=== PATIENT | female | born 1975 | race Caucasian/White ===

== ENCOUNTER 2020-04-10 12:49 | Inpatient (IN) | payer BC, MEDICARE, OTHER ==
[2020-04-10] MEDS ORDERED: ONDANSETRON 4 MG/2 ML VIAL IVP STA (13:54)
[2020-04-10] MEDS ORDERED: SODIUM CHLORIDE 0.9% 1,000 ML IV STA (13:54)
[2020-04-10] MEDS ORDERED: ACETAMINOPHEN TAB 325 MG TAB PO STA (13:55)
--- NOTE | 2020-04-10 14:01 | ED ---
General Adult HPI <Esdras Owens - Last Filed: 04/10/20 17:10> - General Source: patient, RN notes reviewed, old records reviewed Mode of arrival: ambulatory Limitations: no limitations <Claudio Morgan - Last Filed: 04/10/20 19:06> - General Chief complaint: Abdominal Pain Stated complaint: Abd pain Time Seen by Provider: 04/10/20 13:00 - History of Present Illness Initial comments: 44-year-old female patient past history of irritable bowel syndrome patient's ED with abdominal pain. Patient reports that starting at 9 PM last night she began to have periumbilical abdominal pain which has gradually migrated down to her right lower quadrant. Reports that she has had approximately 4 episodes of na usea and vomiting most recently at 9 AM this morning. Patient denies any chance of being . Denies any other complaints at this time. Systemic: Pt denies fatigue, fever/chills, rash. Pt denies weakness, night sweats, weight loss. Neuro: Pt denies headache, visual disturbances, syncope or pre-syncope. HEENT: Pt denies ocular discharge or irritation, otalgia, rhinorrhea, pharyngitis or notable lymphadenopathy. Cardiopulmonary: Pt denies chest pain, SOB, heart palpitations, dyspnea on e xertion. : Pt denies dysuria, burning w/ urination, frequency/urgency. Denies new onset urinary or bowel incontinence. MSK: Pt denies myalgia, loss of strength or function in extremities. Neuro: Pt denies new onset weakness, paresthesias. (Claudio Morgan) - Related Data Home Medications Medication Instructions Recorded Confirmed Melatonin 3 mg PO HS 04/18/15 11/01/15 Previous Rx's Medication Instructions Recorded Citalopram Hydrobromide [CeleXA] 10 mg PO DAILY@1900 #30 tab 11/05/15 clonazePAM [KlonoPIN] 1 mg PO HS #15 tab 11/05/15 traZODone HCL [Desyrel] 50 mg PO HS #30 tab 11/05/15 Allergies Allergy/AdvReac Type Severity Reaction Status Date / Time No Known Allergies Allergy Verified 04/10/20 12:57 Review of Systems ROS Other: All systems not noted in ROS Statement are negative. <Esdras Owens - Last Filed: 04/10/20 17:10> ROS Other: All systems not noted in ROS Statement are negative. <Claudio Morgan - Last Filed: 04/10/20 19:06> ROS Statement: Those systems with pertinent positive or pertinent negative responses have been documented in the HPI. Past Medical History Past Medical History: No Reported History Additional Past Medical History / Comment(s): IBS, stage 0 CLL History of Any Multi-Drug Resistant Organisms: None Reported Past Surgical History: Cholecystectomy Past Anesthesia/Blood Transfusion Reactions: No Reported Reaction Past Psychological History: Bipolar, Depression Smoking Status: Never smoker Past Alcohol Use History: None Reported Past Drug Use History: None Reported - Past Family History Father Family Medical History: Cancer Additional Family Medical History / Comment(s): Father is age 68 with history of colon cancer. Mother Additional Family Medical History / Comment(s): Mother is alive with history of thyroid problem and hyperlipidemia. Patient has 1 brother with no major medical problems. <Claudio Morgan - Last Filed: 04/10/20 19:06> General Exam Limitations: no limitations <Claudio Morgan - Last Filed: 04/10/20 19:06> - General Exam Comments Initial Comments: Constitutional: NAD, AOX3, Pt has pleasant affect. HEENT: NC/AT, trachea midline, neck supple, no lymphadenopathy. Posterior pharynx non erythematous, without exudates. External ears appear normal, without discharge. Mucous membranes moist. Eyes PERRLA, EOM intact. There is no scleral icterus. No pallor noted. Cardiopulmonary: RRR, no murmurs, rubs or gallops, no JVD noted. Lungs CTAB in anterior and posterior hargrove. No peripheral edema. Abdominal exam: Abdomen soft and non-distended. Abdomen moderately tender to palpation periumbilical right lower quadrant region. No guarding no rigidity no ecchymoses. Bowel sounds active in LLQ. No hepatosplenomegaly.Neuro: CN II-XII grossly intact. No nuchal rigidity. No raccon eyes, no dunne sign, no hemotympanum. No cervical spinal tenderness. MSK: No posterior calf tenderness bilaterally, homans sign negative bilaterally. Posterior tibialis and radial pulse +2 bilaterally. Sensation intact in upper and lower extremities. Full active ROM in upper and lower extremities, 5/5 stregnth. (Claudio Morgan) Course Vital Signs 04/10/20 04/10/20 04/10/20 12:51 15:12 16:45 Temperature 97.9 F Pulse Rate 82 75 64 Pulse Rate [ Pulse Oximetery ] Respiratory 18 18 18 Rate Blood Pressure 116/75 106/63 111/65 Blood Pressure [Right Arm Supine] O2 Sat by Pulse 98 100 98 Oximetry 04/10/20 04/10/20 04/10/20 18:00 18:14 18:35 Temperature 99.2 F 98.5 F Pulse Rate 78 Pulse Rate [ 91 80 Pulse Oximetery ] Respiratory 18 18 18 Rate Blood Pressure 121/78 Blood Pressure 118/72 [Right Arm Supine] O2 Sat by Pulse 98 99 98 Oximetry Medical Decision Making - Lab Data Result diagrams: 04/10/20 13:47 04/10/20 13:47 <Esdras Owens - Last Filed: 04/10/20 17:10> - Lab Data Result diagrams: 04/10/20 13:47 04/10/20 13:47 <Claudio Morgan - Last Filed: 04/10/20 19:06> - Medical Decision Making Patient reevaluated and reexamined by myself, Dr. Owens. I do agree with PA findings. This includes diagnostic interpretation and treatment plan. Patient is resting comfortably in bed. Abdomen is soft however there is moderate tenderness right lower quadrant. Report and results reviewed. Patient updated. Case discussed in detail with Dr. Scherer, who will admit and take patient to the OR. (Esdras Owens) 44-year-old female patient past history of irritable bowel syndrome patient's ED with abdominal pain. Patient reports that starting at 9 PM last night she began to have periumbilical abdominal pain which has gradually migrated down to her right lower quadrant. Reports that she has had approximately 4 episodes of nausea and vomiting most recently at 9 AM this morning. Patient denies any chance of being . Denies any other complaints at this time. Patient will signs are stable, afebrile. Physical exam displayed right lower quadrant periumbilical abdominal tenderness. Laboratory investigations reveal a white cell count of 29.3. CT and L displayed dilated appendix with appendicolith correlate for acute appendicitis. Patient initiated on Zosyn. Patient will be admitted to Dr. Gilliam for acute appendicitis. (Claudio Morgan) - Lab Data Lab Results 04/10/20 04/10/20 04/10/20 Range/Units 13:27 13:27 13:47 WBC 29.3 H (3.8-10.6) k/uL RBC 4.81 (3.80-5.40) m/uL Hgb 14.4 (11.4-16.0) gm/dL Hct 43.5 (34.0-46.0) % MCV 90.5 (80.0-100.0) fL MCH 30.0 (25.0-35.0) pg MCHC 33.2 (31.0-37.0) g/dL RDW 12.5 (11.5-15.5) % Plt Count 177 (150-450) k/uL Neutrophils % 59 % Lymphocytes % 34 % Monocytes % 3 % Eosinophils % 0 % Basophils % 0 % Neutrophils # 17.4 H (1.3-7.7) k/uL Lymphocytes # 10.1 H (1.0-4.8) k/uL Monocytes # 0.8 (0-1.0) k/uL Eosinophils # 0.0 (0-0.7) k/uL Basophils # 0.1 (0-0.2) k/uL Manual Slide Review Performed Anisocytosis (manual) Present Sodium (137-145) mmol/L Potassium (3.5-5.1) mmol/L Chloride (98-107) mmol/L Carbon Dioxide (22-30) mmol/L Anion Gap mmol/L BUN (7-17) mg/dL Creatinine (0.52-1.04) mg/dL Est GFR (CKD-EPI)AfAm (>60 ml/min/1.73 sqM) Est GFR (CKD-EPI)NonAf (>60 ml/min/1.73 sqM) Glucose (74-99) mg/dL Plasma Lactic Acid Solomon (0.7-2.0) mmol/L Calcium (8.4-10.2) mg/dL Total Bilirubin (0.2-1.3) mg/dL AST (14-36) U/L ALT (4-34) U/L Alkaline Phosphatase (38-126) U/L Total Protein (6.3-8.2) g/dL Albumin (3.5-5.0) g/dL Lipase (23-300) U/L Urine Color Yellow Urine Appearance Cloudy H (Clear) Urine pH 6.0 (5.0-8.0) Ur Specific [place] 1.030 (1.001-1.035) Urine Protein Trace H (Negative) Urine Glucose (UA) Negative (Negative) Urine Ketones 2+ H (Negative) Urine Blood Moderate H (Negative) Urine Nitrite Negative (Negative) Urine Bilirubin Negative (Negative) Urine Urobilinogen <2.0 (<2.0) mg/dL Ur Leukocyte Esterase Negative (Negative) Urine RBC 2 (0-5) /hpf Urine WBC 6 H (0-5) /hpf Ur Squamous Epith Cells 5 H (0-4) /hpf Amorphous Sediment Rare H (None) /hpf Urine Bacteria Rare H (None) /hpf Urine Mucus Few H (None) /hpf Urine HCG, Qual Not Detected (Not Detectd) Coronavirus (PCR) (Not Detectd) 04/10/20 04/10/20 04/10/20 Range/Units 13:47 13:47 16:35 WBC (3.8-10.6) k/uL RBC (3.80-5.40) m/uL Hgb (11.4-16.0) gm/dL Hct (34.0-46.0) % MCV (80.0-100.0) fL MCH (25.0-35.0) pg MCHC (31.0-37.0) g/dL RDW (11.5-15.5) % Plt Count (150-450) k/uL Neutrophils % % Lymphocytes % % Monocytes % % Eosinophils % % Basophils % % Neutrophils # (1.3-7.7) k/uL Lymphocytes # (1.0-4.8) k/uL Monocytes # (0-1.0) k/uL Eosinophils # (0-0.7) k/uL Basophils # (0-0.2) k/uL Manual Slide Review Anisocytosis (manual) Sodium 137 (137-145) mmol/L Potassium 3.7 (3.5-5.1) mmol/L Chloride 106 (98-107) mmol/L Carbon Dioxide 21 L (22-30) mmol/L Anion Gap 10 mmol/L BUN 14 (7-17) mg/dL Creatinine 0.79 (0.52-1.04) mg/dL Est GFR (CKD-EPI)AfAm >90 (>60 ml/min/1.73 sqM) Est GFR (CKD-EPI)NonAf >90 (>60 ml/min/1.73 sqM) Glucose 128 H (74-99) mg/dL Plasma Lactic Acid Solomon 1.3 (0.7-2.0) mmol/L Calcium 9.5 (8.4-10.2) mg/dL Total Bilirubin 1.0 (0.2-1.3) mg/dL AST 22 (14-36) U/L ALT 16 (4-34) U/L Alkaline Phosphatase 68 (38-126) U/L Total Protein 7.4 (6.3-8.2) g/dL Albumin 4.5 (3.5-5.0) g/dL Lipase 83 (23-300) U/L Urine Color Urine Appearance (Clear) Urine pH (5.0-8.0) Ur Specific [place] (1.001-1.035) Urine Protein (Negative) Urine Glucose (UA) (Negative) Urine Ketones (Negative) Urine Blood (Negative) Urine Nitrite (Negative) Urine Bilirubin (Negative) Urine Urobilinogen (<2.0) mg/dL Ur Leukocyte Esterase (Negative) Urine RBC (0-5) /hpf Urine WBC (0-5) /hpf Ur Squamous Epith Cells (0-4) /hpf Amorphous Sediment (None) /hpf Urine Bacteria (None) /hpf Urine Mucus (None) /hpf Urine HCG, Qual (Not Detectd) Coronavirus (PCR) Not Detected (Not Detectd) Disposition <Esdras Owens - Last Filed: 04/10/20 17:10> Is patient prescribed a controlled substance at d/c from ED?: No <Claudio Morgan - Last Filed: 04/10/20 19:06> Clinical Impression: Acute appendicitis Disposition: ADMITTED IP TO THIS HOSP Condition: Serious
[2020-04-10 14:12] LABS: Amorphous Sediment,Urine Rare /hpf; Appearance,Urine Cloudy (Clear); Bacteria,Urine Rare /hpf; Bilirubin,Urine Negative (Negative); Blood,Urine Moderate (Negative); Color,Urine Yellow; Glucose,Urine (UA) Negative (Negative); Ketones,Urine 2+ (Negative); Leukocyte Esterase,Urine Negative (Negative); Mucus,Urine Few /hpf; Nitrite,Urine Negative (Negative); Protein,Urine Trace (Negative); RBC,Urine 2 /hpf (0-5); Squamous Epithelial Cell,Urine 5 /hpf (0-4); Urobilinogen,Urine <2.0 mg/dL (<2.0); WBC,Urine 6 /hpf (0-5)
[2020-04-10 14:18] LABS: Basophils # (A) 0.1 k/uL (0-0.2); Basophils % (A) 0 %; Eosinophils % (A) 0 %; HCT 43.5 % (34.0-46.0); HGB 14.4 gm/dL (11.4-16.0); Lymphocytes # (A) 10.1 k/uL (1.0-4.8); Lymphocytes % (A) 34 %; MCHC 33.2 g/dL (31.0-37.0); MCV 90.5 fL (80.0-100.0); Mean Platelet Volume 8.8; Monocytes # (A) 0.8 k/uL (0-1.0); Monocytes % (A) 3 %; Neutrophils # (A) 17.4 k/uL (1.3-7.7); Neutrophils % (A) 59 %; Platelet Count 177 k/uL (150-450); RBC 4.81 m/uL (3.80-5.40); RDW 12.5 % (11.5-15.5); WBC 29.3 k/uL (3.8-10.6)
[2020-04-10 14:22] LABS: ALT 16 U/L (4-34); AST 22 U/L (14-36); African American GFR (CKD) >90 (>60 ml/min/1.73 sqM); Albumin 4.5 g/dL (3.5-5.0); Alkaline Phosphatase 68 U/L (38-126); Anion Gap 10 mmol/L; Blood Urea Nitrogen 14 mg/dL (7-17); Calcium 9.5 mg/dL (8.4-10.2); Carbon Dioxide 21 mmol/L (22-30); Chloride 106 mmol/L (98-107); Glucose 128 mg/dL (74-99); Non-African American GFR(CKD) >90 (>60 ml/min/1.73 sqM); Potassium 3.7 mmol/L (3.5-5.1); Sodium 137 mmol/L (137-145); Total Protein 7.4 g/dL (6.3-8.2)
[2020-04-10 15:05] LABS: Anisocytosis (M) Present
--- NOTE | 2020-04-10 16:07 | CT ---
EXAMINATION TYPE: CT abdomen pelvis w con DATE OF EXAM: 04/10/2020 COMPARISON: HISTORY: Periumbilical pain CT DLP: 1140.2 mGycm Automated exposure control for dose reduction was used. CONTRAST: CT scan of the abdomen pelvis is performed with IV Contrast, patient injected with 100 mL of Isovue 3 00. FINDINGS- LUNG BASES-subsegmental changes involving the lung bases suggestive of atelectasis. LIVER/GB-postcholecystectomy changes noted.. PANCREAS- No gross abnormality is seen. SPLEEN-spleen measures approximately 14 cm correlate for mild splenomegaly.. ADRENALS- No gross abnormality is seen. KIDNEYS/BLADDER- no hydronephrosis nephrolithiasis or renal mass. BOWEL-appendix contains an appendicolith appears to be markedly dilated and there is mild pericolonic inflammatory change. Appendix measures up to 12 mm. There is a small amount of fluid adjacent to the uterus on the right.. LYMPH NODES- No greater than 1cm abdominal or pelvic lymph nodes areappreciated. Shotty periaortic l ymphadenopathy noted. OSSEOUS STRUCTURES- No significant abnormality is seen. OTHER- small fluid attenuation adjacent body on the right is nonspecific and too small to characteri ze. It is seen adjacent to the suspected acute appendicitis. IMPRESSION- 1. Dilated appendix with appendicolith correlate for acute appendicitis. Small amount of nondescript fluid seen adjacent to the right uterine body is nonspecific. Correlate clinically. 2. Mild splenomegaly.
[2020-04-10] MEDS ORDERED: PIPERACILLIN-TAZOBACTAM 3.375 GM in SODIUM CHLORIDE 0.9% 100 ML IVPB STA (16:09)
[2020-04-10] MEDS ORDERED: MORPHINE SULFATE 4 MG/ML SYRINGE IV STA (16:48)
[2020-04-10] MEDS ORDERED: NALOXONE 0.4 MG/ML 1 ML VIAL IV PRN ×2 (17:32→19:26)
[2020-04-10] MEDS ORDERED: MORPHINE SULFATE 4 MG/ML SYRINGE IV PRN (17:32)
[2020-04-10] MEDS ORDERED: IV FLUID CONTINUATION 400 ML IV ONE (18:12)
[2020-04-10] MEDS ORDERED: DEXAMETHASONE SOD PHOSPHATE 10 MG/ML 1 ML VIAL IV ONE (18:12)
[2020-04-10] MEDS ORDERED: SCOPOLAMINE 1.5MG/72HR PATCH TRANSDERM ONE (18:12)
[2020-04-10] MEDS ORDERED: ONDANSETRON 4 MG/2 ML VIAL IVP ONE (18:12)
[2020-04-10] MEDS ORDERED: MIDAZOLAM 2 MG/2 ML VIAL IV ONE (18:13)
[2020-04-10] MEDS ORDERED: METOCLOPRAMIDE 5 MG/ML 2 ML VIAL IVP PRN (18:17)
[2020-04-10] MEDS ORDERED: LIDOCAINE 1% (10MG/ML) FOR IV START INTRADERMA PRN (18:17)
[2020-04-10] MEDS ORDERED: LACTATED RINGERS 1,000 ML IV ONE ×2 (18:34→19:26)
[2020-04-10] MEDS ORDERED: HYDROmorphone 1 MG/ML 1 ML SYRINGE IVP ONE (18:34)
--- NOTE | 2020-04-10 18:51 | P.GSHP ---
History of Present Illness H&P Date: 04/10/20 Chief Complaint: Acute appendicitis This a 44-year-old female who presents emergency room with 24 hour history of abdominal pain. His workup found have acute appendicitis on CAT scan. The patient's septic on admission with a white count of 29,000 Past Medical History Past Medical History: No Reported History Additional Past Medical History / Comment(s): IBS, stage 0 CLL History of Any Multi-Drug Resistant Organisms: None Reported Past Surgical History: Cholecystectomy Past Anesthesia/Blood Transfusion Reactions: No Reported Reaction Past Psychological History: Bipolar, Depression Smoking Status: Never smoker Past Alcohol Use History: None Reported Past Drug Use History: None Reported - Past Family History Father Family Medical History: Cancer Additional Family Medical History / Comment(s): Father is age 68 with history of colon cancer. Mother Additional Family Medical History / Comment(s): Mother is alive with history of thyroid problem and hyperlipidemia. Patient has 1 brother with no major medical problems. Medications and Allergies Home Medications Medication Instructions Recorded Confirmed Type Melatonin 3 mg PO HS 04/18/15 11/01/15 History Citalopram Hydrobromide [CeleXA] 10 mg PO DAILY@1900 #30 tab 11/05/15 Rx clonazePAM [KlonoPIN] 1 mg PO HS #15 tab 11/05/15 Rx traZODone HCL [Desyrel] 50 mg PO HS #30 tab 11/05/15 Rx Allergies Allergy/AdvReac Type Severity Reaction Status Date / Time No Known Allergies Allergy Verified 04/10/20 12:57 Surgical - Exam Vital Signs Temp Pulse Resp BP Pulse Ox 97.9 F 82 18 116/75 98 04/10/20 12:51 04/10/20 12:51 04/10/20 12:51 04/10/20 12:51 04/10/20 12:51 - General well developed, moderate distress - Eyes PERRL - ENT normal pinna - Neck no masses - Respiratory normal expansion - Cardiovascular Rhythm: regular - Abdomen Marked tenderness right lower quadrant Abdomen: soft Results - Labs 04/10/20 13:47 04/10/20 13:47 Abnormal Lab Results - Last 24 Hours (Table) 04/10/20 04/10/20 04/10/20 Range/Units 13:27 13:47 13:47 WBC 29.3 H (3.8-10.6) k/uL Neutrophils # 17.4 H (1.3-7.7) k/uL Lymphocytes # 10.1 H (1.0-4.8) k/uL Carbon Dioxide 21 L (22-30) mmol/L Glucose 128 H (74-99) mg/dL Urine Appearance Cloudy H (Clear) Urine Protein Trace H (Negative) Urine Ketones 2+ H (Negative) Urine Blood Moderate H (Negative) Urine WBC 6 H (0-5) /hpf Ur Squamous Epith Cells 5 H (0-4) /hpf Amorphous Sediment Rare H (None) /hpf Urine Bacteria Rare H (None) /hpf Urine Mucus Few H (None) /hpf Diabetes panel 04/10/20 Range/Units 13:47 Sodium 137 (137-145) mmol/L Potassium 3.7 (3.5-5.1) mmol/L Chloride 106 (98-107) mmol/L Carbon Dioxide 21 L (22-30) mmol/L BUN 14 (7-17) mg/dL Creatinine 0.79 (0.52-1.04) mg/dL Glucose 128 H (74-99) mg/dL Calcium 9.5 (8.4-10.2) mg/dL AST 22 (14-36) U/L ALT 16 (4-34) U/L Alkaline Phosphatase 68 (38-126) U/L Total Protein 7.4 (6.3-8.2) g/dL Albumin 4.5 (3.5-5.0) g/dL Calcium panel 04/10/20 Range/Units 13:47 Calcium 9.5 (8.4-10.2) mg/dL Albumin 4.5 (3.5-5.0) g/dL Pituitary panel 04/10/20 Range/Units 13:47 Sodium 137 (137-145) mmol/L Potassium 3.7 (3.5-5.1) mmol/L Chloride 106 (98-107) mmol/L Carbon Dioxide 21 L (22-30) mmol/L BUN 14 (7-17) mg/dL Creatinine 0.79 (0.52-1.04) mg/dL Glucose 128 H (74-99) mg/dL Calcium 9.5 (8.4-10.2) mg/dL Adrenal panel 04/10/20 Range/Units 13:47 Sodium 137 (137-145) mmol/L Potassium 3.7 (3.5-5.1) mmol/L Chloride 106 (98-107) mmol/L Carbon Dioxide 21 L (22-30) mmol/L BUN 14 (7-17) mg/dL Creatinine 0.79 (0.52-1.04) mg/dL Glucose 128 H (74-99) mg/dL Calcium 9.5 (8.4-10.2) mg/dL Total Bilirubin 1.0 (0.2-1.3) mg/dL AST 22 (14-36) U/L ALT 16 (4-34) U/L Alkaline Phosphatase 68 (38-126) U/L Total Protein 7.4 (6.3-8.2) g/dL Albumin 4.5 (3.5-5.0) g/dL Assessment and Plan Assessment: Acute appendicitis. We'll perform laparoscopic appendectomy.
[2020-04-10] MEDS ORDERED: PROPOFOL 10 MG/ML 20 ML VIAL IV ONE (18:53)
[2020-04-10] MEDS ORDERED: GLYCOPYRROLATE 0.2 MG/ML 2 ML VIAL ONE (18:53)
[2020-04-10] MEDS ORDERED: MIDAZOLAM 2 MG/2 ML VIAL ONE (18:53)
[2020-04-10] MEDS ORDERED: LIDOCAINE 1% INJ 10MG/ML (20 ML MDV) ONE (18:53)
[2020-04-10] MEDS ORDERED: NEOSTIGMINE 1 MG/ML 10 ML VIAL ONE (18:53)
[2020-04-10] MEDS ORDERED: SUCCINYLCHOLINE CHLORIDE 100 MG/5 ML SYR IV ONE (18:53)
[2020-04-10] MEDS ORDERED: fentaNYL (PF) 50 MCG/ML 2 ML AMP ONE (18:53)
[2020-04-10] MEDS ORDERED: ROCURONIUM BROMIDE 10 MG/ML 5 ML VIAL IV ONE (18:53)
[2020-04-10] MEDS ORDERED: BUPIVACAIN-EPI 0.25%-1:200,000 30 ML VIAL SQ ONE (19:05)
[2020-04-10] MEDS ORDERED: ONDANSETRON 4 MG/2 ML VIAL IVP PRN (19:26)
[2020-04-10] MEDS ORDERED: HYDROcodone/APAP 5-325MG 1 EACH TAB PO PRN (19:26)
--- NOTE | 2020-04-10 19:26 | P.OP ---
Date of Procedure: 04/10/20 Preoperative Diagnosis: Acute appendicitis Postoperative Diagnosis: Acute perforated appendicitis Procedure(s) Performed: Laparoscopic appendectomy Anesthesia: ANANDA Surgeon: Chris Gibson Estimated Blood Loss (ml): 5 Pathology: other (Appendix) Condition: stable Disposition: PACU Description of Procedure: HThe patient's placed on the operating table in the supine position. The patient received general anesthesia. The abdomen was prepped and draped in the usual sterile fashion. The skin was anesthetized 1% local Xylocaine at the trocar sites. Using an 11 blade the skin was incised at the umbilicus. The umbilicus was grasped with a Jessup clamp and then a Veress needle was placed into the peritoneal cavity. Position of the Veress needle was confirmed with positive drop test. After adequate insufflation a 5 mm trocar was placed into the peritoneal cavity. The abdomen was further insufflated. And then the laparoscope was placed in the peritoneal cavity. Next a 5 mm trocar was placed in the midline suprapubic position. And then a 10 mm trocar was placed in the midline epigastric position. The patient was rotated with the right side up and in Trendelenburg. The appendix was visualized. The appendix was perforated at the distal tip there was purulent fluid in the abdomen. The appendix appeared to be inflamed. The appendix was grasped and then using the Harmonic scissors the mesoappendix was divided. A PDS Endoloop was then placed around the base of the appendix. And then the appendix was divided using Harmonic scissors. The appendix was placed into an Endo Catch and brought out through the 10 mm trocar site. The abdomen was irrigated. There is no bleeding seen. A JAXON drains placed. Cavity and brought out through the inferior 5 ohmmeter trocar site. The trochars withdrawn. The skin was closed interrupted 3-0 Monocryl suture. Dermabond dressing was applied. Patient was sent to recovery room in stable condition.
[2020-04-10] MEDS: HYDROmorphone 0.5 MG/0.5 ML SYRINGE IVP PRN ×3 (19:30→19:53)
[2020-04-10] MEDS: KETOROLAC 30 MG/ML 1 ML VIAL IVP SCH (19:35)
[2020-04-11] MEDS ORDERED: PIPERACILLIN-TAZOBACTAM 3.375 GM in SODIUM CHLORIDE 0.9% 100 ML IVPB SCH ×2
[2020-04-11] MEDS: KETOROLAC 30 MG/ML 1 ML VIAL IVP SCH ×5 (00:13→23:34)
[2020-04-11] MEDS: PIPERACILLIN-TAZOBACTAM 3.375 GM in SODIUM CHLORIDE 0.9% 100 ML IVPB SCH ×4 (00:15→23:35)
[2020-04-11 06:58] LABS: Basophils % (A) 0 %; Eosinophils # (A) 0.1 k/uL (0-0.7); Eosinophils % (A) 0 %; HCT 40.3 % (34.0-46.0); HGB 13.3 gm/dL (11.4-16.0); Lymphocytes # (A) 4.3 k/uL (1.0-4.8); Lymphocytes % (A) 21 %; MCH 30.4 pg (25.0-35.0); MCHC 33.1 g/dL (31.0-37.0); MCV 91.9 fL (80.0-100.0); Mean Platelet Volume 9.7; Monocytes # (A) 0.4 k/uL (0-1.0); Monocytes % (A) 2 %; Neutrophils # (A) 15.5 k/uL (1.3-7.7); Neutrophils % (A) 76 %; Platelet Count 166 k/uL (150-450); RBC 4.38 m/uL (3.80-5.40); WBC 20.5 k/uL (3.8-10.6)
[2020-04-11 07:09] LABS: ALT 89 U/L (4-34); AST 95 U/L (14-36); African American GFR (CKD) >90 (>60 ml/min/1.73 sqM); Albumin 3.7 g/dL (3.5-5.0); Alkaline Phosphatase 48 U/L (38-126); Anion Gap 11 mmol/L; Blood Urea Nitrogen 12 mg/dL (7-17); Calcium 8.5 mg/dL (8.4-10.2); Carbon Dioxide 19 mmol/L (22-30); Chloride 109 mmol/L (98-107); Glucose 147 mg/dL (74-99); Non-African American GFR(CKD) >90 (>60 ml/min/1.73 sqM); Potassium 4.2 mmol/L (3.5-5.1); Sodium 139 mmol/L (137-145); Total Protein 6.5 g/dL (6.3-8.2)
[2020-04-11] MEDS: ENOXAPARIN 40 MG/0.4 ML SYRINGE SQ SCH (08:35)
--- NOTE | 2020-04-11 08:48 | P.CONS ---
History of Present Illness - History of Present Illness This is a pleasant 44 years old female with past medical history of irritable bowel syndrome and depression. Admitted to surgical service for acute appendicitis, patient underwent Laparoscopic appendectomy and today is postoperative day #1. This morning patient was trying liquid diet, she has pain at surgical site and mid lower abdomen drain . No bowel movement or gas. No nausea vomiting Patient was recently diagnosed with CLL about 2 months ago and she follow up with the oncologist/perinatal coordinator at [facility] and her next appointment is on April Vitals stable. She has leukocytosis 29.3, 20.5 K, rest of CBC and BMP is unremarkable. Liver enzymes slightly elevated. She has CT of the abdomen and pelvis on admission showing appendicitis. Patient was started on Zosyn Review of Systems CONSTITUTIONAL: No fever, no malaise, no fatigue. HEENT: No recent visual problems or hearing problems. Denied any sore throat. CARDIOVASCULAR: No orthopnea, PND, no palpitations, no syncope. PULMONARY: No shortness of breath, no cough, no hemoptysis. GASTROINTESTINAL: No diarrhea, no nausea, no vomiting, no abdominal pain. Normoactive bowel sounds. NEUROLOGICAL: No headaches, no weakness, no numbness. HEMATOLOGICAL: Denies any bleeding or petechiae. GENITOURINARY: Denies any burning micturition, frequency, or urgency. MUSCULOSKELETAL/RHEUMATOLOGICAL: Denies any joint pain, swelling, or any muscle pain. ENDOCRINE: Denies any polyuria or polydipsia. Past Medical History Past Medical History: No Reported History Additional Past Medical History / Comment(s): IBS, stage 0 CLL History of Any Multi-Drug Resistant Organisms: None Reported Past Surgical History: Appendectomy, Cholecystectomy Past Anesthesia/Blood Transfusion Reactions: No Reported Reaction Past Psychological History: Depression Smoking Status: Never smoker Past Alcohol Use History: None Reported Additional Past Alcohol Use History / Comment(s): Patient is a lifelong nonsmoker. She denies any medical marijuana, marijuana or street drug use. She denies any alcohol use. Patient is single. Patient is on disability. Past Drug Use History: Marijuana - Past Family History Father Family Medical History: Cancer Additional Family Medical History / Comment(s): Father is age 68 with history of colon cancer. Mother Additional Family Medical History / Comment(s): Mother is alive with history of thyroid problem and hyperlipidemia. Patient has 1 brother with no major medical problems. Medications and Allergies Home Medications Medication Instructions Recorded Confirmed Type Melatonin 2.5 mg PO HS PRN 04/10/20 04/10/20 History diphenhydrAMINE HCL [Benadryl] 25 - 50 mg PO HS PRN 04/10/20 04/10/20 History Allergies Allergy/AdvReac Type Severity Reaction Status Date / Time No Known Allergies Allergy Verified 04/10/20 21:33 Physical Exam Vitals: Vital Signs Temp Pulse Pulse Resp BP BP Pulse Ox 04/11/20 05:22 98.3 F 96 18 109/68 95 04/10/20 23:47 66 14 100/55 96 04/10/20 22:47 96/54 04/10/20 21:47 73 100/52 95 04/10/20 21:17 59 L 94/55 04/10/20 20:47 75 95/50 90 L 04/10/20 20:32 70 101/58 93 L 04/10/20 20:17 99.0 F 75 18 103/57 96 04/10/20 20:02 91 16 122/59 98 04/10/20 19:45 83 16 124/68 98 04/10/20 19:30 82 16 124/77 98 04/10/20 19:25 99.5 F 111 H 16 125/64 94 L 04/10/20 18:35 80 18 98 04/10/20 18:14 98.5 F 91 18 118/72 99 04/10/20 18:00 99.2 F 78 18 121/78 98 04/10/20 16:45 64 18 111/65 98 04/10/20 15:12 75 18 106/63 100 04/10/20 12:51 97.9 F 82 18 116/75 98 Intake and Output 04/10/20 04/11/20 04/11/20 22:59 06:59 14:59 Intake Total 1350 0 Output Total 10 30 Balance 1340 -30 Intake: IV 1350 Oral 0 0 Output: Drainage 30 Anterior Abdomen 30 Estimated Blood Loss 10 Other: # Voids 0 1 Weight 86.183 kg GENERAL: The patient is alert and oriented x3, not in any acute distress. Well developed, well nourished. HEENT: Pupils are round and equally reacting to light. EOMI. No scleral icterus. No conjunctival pallor. Normocephalic, atraumatic. No pharyngeal erythema. No thyromegaly. CARDIOVASCULAR: S1 and S2 present. No murmurs, rubs, or gallops. PULMONARY: Chest is clear to auscultation, no wheezing or crackles. -ABDOMEN: Soft, nontender, nondistended, normoactive bowel sounds. No palpable organomegaly. Right lower quadrant surgical wound with dressing MUSCULOSKELETAL: No joint swelling or deformity. EXTREMITIES: No cyanosis, clubbing, or pedal edema. NEUROLOGICAL: Gross neurological examination did not reveal any focal deficits. SKIN: No rashes. No petechiae Results CBC & Chem 7: 04/11/20 06:09 04/11/20 06:09 Labs: Abnormal Lab Results - Last 24 Hours (Table) 04/10/20 04/10/20 04/10/20 Range/Units 13:27 13:47 13:47 WBC 29.3 H (3.8-10.6) k/uL Neutrophils # 17.4 H (1.3-7.7) k/uL Lymphocytes # 10.1 H (1.0-4.8) k/uL Chloride (98-107) mmol/L Carbon Dioxide 21 L (22-30) mmol/L Glucose 128 H (74-99) mg/dL AST (14-36) U/L ALT (4-34) U/L Urine Appearance Cloudy H (Clear) Urine Protein Trace H (Negative) Urine Ketones 2+ H (Negative) Urine Blood Moderate H (Negative) Urine WBC 6 H (0-5) /hpf Ur Squamous Epith Cells 5 H (0-4) /hpf Amorphous Sediment Rare H (None) /hpf Urine Bacteria Rare H (None) /hpf Urine Mucus Few H (None) /hpf 04/11/20 04/11/20 Range/Units 06:09 06:09 WBC 20.5 H (3.8-10.6) k/uL Neutrophils # 15.5 H (1.3-7.7) k/uL Lymphocytes # (1.0-4.8) k/uL Chloride 109 H (98-107) mmol/L Carbon Dioxide 19 L (22-30) mmol/L Glucose 147 H (74-99) mg/dL AST 95 H (14-36) U/L ALT 89 H (4-34) U/L Urine Appearance (Clear) Urine Protein (Negative) Urine Ketones (Negative) Urine Blood (Negative) Urine WBC (0-5) /hpf Ur Squamous Epith Cells (0-4) /hpf Amorphous Sediment (None) /hpf Urine Bacteria (None) /hpf Urine Mucus (None) /hpf Assessment and Plan Assessment: acute appendicitis status post laparoscopic appendectomy Mildly elevated liver enzymes secondary to above CLL, stage 0 History of irritable bowel syndrome Plan: This is a pleasant 44 years old female who presents with acute appendicitis status post laparoscopic appendectomy by surgery cream. Pain management per surgical team. Continue with antibiotic. Follow-up liver enzymes. Labs and medication were reviewed.. Continue same treatment. Continue with symptomatic treatment. Resume home medication. Monitor lytes and vitals. DVT and GI prophylaxis. Further recommendations of the clinical course of the patient DVT prophylaxis: Subcutaneous Lovenox GI Prophylaxis: Pepcid
[2020-04-11] MEDS: FAMOTIDINE 20 MG/2 ML VIAL IV SCH ×2 (10:51→20:57)
--- NOTE | 2020-04-11 11:29 | P.PN ---
Subjective Progress Note Date: 04/11/20 CHIEF COMPLAINT: Abdominal pain HISTORY OF PRESENT ILLNESS: Patient is status post laparoscopic appendectomy secondary to acute perforated appendicitis. Postoperative day #1. Patient examined at the bedside with Dr. Gibson. Patient states her pain is tolerable at this time. Tolerating clear liquid diet. Denies nausea or vomiting. WBC 20.5. PHYSICAL EXAM: VITAL SIGNS: Reviewed. GENERAL: Well-developed in no acute distress. HEENT: No sclera icterus. Extraocular movements grossly intact. Moist buccal mucosa. Head is atraumatic, normocephalic. ABDOMEN: Soft. Nondistended. Surgical sites clean dry and intact. JAXON drain with serosanguineous drainage. NEUROLOGIC: Alert and oriented. Cranial nerves II through XII grossly intact. ASSESSMENT: 1. Acute perforated appendicitis PLAN: -Advance diet to full liquids. If patient tolerates May advance to regular diet -Continue IV antibiotics. Monitor WBC -Pain control -Monitor JAXON drain output -Activity as tolerated -Incentive spirometer Nurse practitioner note has been reviewed by physician. Signing provider agrees with the documented findings, assessment, and plan of care. Objective - Vital Signs Vital signs: Vital Signs Temp 98.3 F 04/11/20 05:22 Pulse 96 04/11/20 05:22 Resp 18 04/11/20 05:22 BP 109/68 04/11/20 05:22 Pulse Ox 95 04/11/20 05:22 Intake & Output 04/10/20 04/11/20 04/11/20 18:59 06:59 18:59 Intake Total 900 450 Output Total 40 Balance 900 410 Weight 86.183 kg 86.183 kg Intake: IV 900 450 Oral 0 Output: Drainage 30 Anterior Abdomen 30 Estimated Blood Loss 10 Other: # Voids 1 - Labs CBC & Chem 7: 04/11/20 06:09 04/11/20 06:09 Labs: Abnormal Lab Results - Last 24 Hours (Table) 04/10/20 04/10/20 04/10/20 Range/Units 13:27 13:47 13:47 WBC 29.3 H (3.8-10.6) k/uL Neutrophils # 17.4 H (1.3-7.7) k/uL Lymphocytes # 10.1 H (1.0-4.8) k/uL Chloride (98-107) mmol/L Carbon Dioxide 21 L (22-30) mmol/L Glucose 128 H (74-99) mg/dL AST (14-36) U/L ALT (4-34) U/L Urine Appearance Cloudy H (Clear) Urine Protein Trace H (Negative) Urine Ketones 2+ H (Negative) Urine Blood Moderate H (Negative) Urine WBC 6 H (0-5) /hpf Ur Squamous Epith Cells 5 H (0-4) /hpf Amorphous Sediment Rare H (None) /hpf Urine Bacteria Rare H (None) /hpf Urine Mucus Few H (None) /hpf 04/11/20 04/11/20 Range/Units 06:09 06:09 WBC 20.5 H (3.8-10.6) k/uL Neutrophils # 15.5 H (1.3-7.7) k/uL Lymphocytes # (1.0-4.8) k/uL Chloride 109 H (98-107) mmol/L Carbon Dioxide 19 L (22-30) mmol/L Glucose 147 H (74-99) mg/dL AST 95 H (14-36) U/L ALT 89 H (4-34) U/L Urine Appearance (Clear) Urine Protein (Negative) Urine Ketones (Negative) Urine Blood (Negative) Urine WBC (0-5) /hpf Ur Squamous Epith Cells (0-4) /hpf Amorphous Sediment (None) /hpf Urine Bacteria (None) /hpf Urine Mucus (None) /hpf
[2020-04-11] MEDS: HYDROmorphone 0.5 MG/0.5 ML SYRINGE IVP PRN ×3 (15:51→23:49)
[2020-04-11] MEDS: MELATONIN 3 MG TABLET PO SCH (20:57)
--- NOTE | 2020-04-12 00:42 | P.CONS ---
History of Present Illness - Reason for Consult Consult date: 04/11/20 perforated appendicitis Requesting physician: Chris Gibson - Chief Complaint abdominal pain and vomiting x 1 day - History of Present Illness Patient is a 44-year-old female presenting to the ER at [facility] yesterday afternoon with chief complaints of abdominal pain patient's pain started the night before and has been mostly in the periumbilical area patient noticed to have a significant vomiting afterwards and patient described the pain however abdominal area to be more of a sharp to colicky and with intensity of 10 out of 10 subsequently returned the pain to the right lower quadrant area the patient did have a telemetry health visit with her primary care physician who advised the patient to go to the ER for further evaluation patient present to the hospital on arrival to the ER patient has been afebrile she did have white count of 29,000 patient did have a CT of abdominal pelvis completed with evidence of for dilated appendix and concern for acute appendicitis patient was taken to the OR last night and this patient noticed to have acute perforated appendicitis there is exposed laparoscopic appendectomy patient was started on Zosyn admitted to hospital infectious was consulted for further management of her antibiotic therapy. Review of Systems Positive point has been mentioned in HPI rest of the systems are negative Past Medical History Past Medical History: No Reported History Additional Past Medical History / Comment(s): IBS, stage 0 CLL History of Any Multi-Drug Resistant Organisms: None Reported Past Surgical History: Appendectomy, Cholecystectomy Past Anesthesia/Blood Transfusion Reactions: No Reported Reaction Past Psychological History: Depression Smoking Status: Never smoker Past Alcohol Use History: None Reported Additional Past Alcohol Use History / Comment(s): Patient is a lifelong nonsmoker. She denies any medical marijuana, marijuana or street drug use. She denies any alcohol use. Patient is single. Patient is on disability. Past Drug Use History: Marijuana - Past Family History Father Family Medical History: Cancer Additional Family Medical History / Comment(s): Father is age 68 with history of colon cancer. Mother Additional Family Medical History / Comment(s): Mother is alive with history of thyroid problem and hyperlipidemia. Patient has 1 brother with no major medical problems. Medications and Allergies Home Medications Medication Instructions Recorded Confirmed Type Melatonin 2.5 mg PO HS PRN 04/10/20 04/10/20 History diphenhydrAMINE HCL [Benadryl] 25 - 50 mg PO HS PRN 04/10/20 04/10/20 History Allergies Allergy/AdvReac Type Severity Reaction Status Date / Time No Known Allergies Allergy Verified 04/10/20 21:33 Physical Exam Vitals: Vital Signs Temp Pulse Pulse Resp BP BP Pulse Ox 04/11/20 11:40 98.6 F 65 18 92/57 96 04/11/20 05:22 98.3 F 96 18 109/68 95 04/10/20 23:47 66 14 100/55 96 04/10/20 22:47 96/54 04/10/20 21:47 73 100/52 95 04/10/20 21:17 59 L 94/55 04/10/20 20:47 75 95/50 90 L 04/10/20 20:32 70 101/58 93 L 04/10/20 20:17 99.0 F 75 18 103/57 96 04/10/20 20:02 91 16 122/59 98 04/10/20 19:45 83 16 124/68 98 04/10/20 19:30 82 16 124/77 98 04/10/20 19:25 99.5 F 111 H 16 125/64 94 L 04/10/20 18:35 80 18 98 04/10/20 18:14 98.5 F 91 18 118/72 99 04/10/20 18:00 99.2 F 78 18 121/78 98 04/10/20 16:45 64 18 111/65 98 04/10/20 15:12 75 18 106/63 100 Intake and Output 04/10/20 04/11/20 04/11/20 22:59 06:59 14:59 Intake Total 1350 0 300 Output Total 10 30 30 Balance 1340 -30 270 Intake: IV 1350 200 0.9 200 Intake, IV Titration 100 Amount Piperacillin-Tazobactam 3 100 .375 gm In Sodium Chloride 0.9% 100 ml @ 25 mls/hr IVPB Q8HR [facility] Rx# :[id number] Oral 0 0 Output: Drainage 30 30 Anterior Abdomen 30 30 Estimated Blood Loss 10 Other: # Voids 0 1 2 Weight 86.183 kg GENERAL DESCRIPTION: Middle-aged female lying in bed, no distress. No tachypnea or accessory muscle of respiration use. HEENT: Shows Pallor , no scleral icterus. Oral mucous membrane is dry. NECK: Trachea central, no thyromegaly. LUNGS: Unlabored breathing. Clear to auscultation anteriorly. No wheeze or crackle. HEART: S1, S2, regular rate and rhythm. ABDOMEN: Soft, mild right lower quadrant tenderness , guarding or rigidity EXTREMITIES: No edema of feet. SKIN: No rash, no masses palpable. NEUROLOGICAL: The patient is awake, alert, oriented x3, mood and affect normal. Results CBC & Chem 7: 04/11/20 06:09 04/11/20 06:09 Labs: Abnormal Lab Results - Last 24 Hours (Table) 04/10/20 04/11/20 04/11/20 Range/Units 13:47 06:09 06:09 WBC 29.3 H 20.5 H (3.8-10.6) k/uL Neutrophils # 17.4 H 15.5 H (1.3-7.7) k/uL Lymphocytes # 10.1 H (1.0-4.8) k/uL Chloride 109 H (98-107) mmol/L Carbon Dioxide 19 L (22-30) mmol/L Glucose 147 H (74-99) mg/dL AST 95 H (14-36) U/L ALT 89 H (4-34) U/L Assessment and Plan Assessment: -patient presented to hospital with abdominal pain of 1 day duration in this patient who was noticed to have significant [place] [id number] suggestive of acute appendicitis with some fluid around and noticed to have perforated appendicitis status post laparoscopic appendectomy will need to cover for enteric gram-negative with a likely pathogen both aerobes and anaerobes (1) Perforated appendix Current Visit: Yes Status: Acute Code(s): K35.32 - ACUTE APPENDICITIS WITH PERF AND LOC PERITONITIS, W/O ABSCS SNOMED Code(s): 92575955 (2) Peritonitis Current Visit: Yes Status: Acute Code(s): K65.9 - PERITONITIS, UNSPECIFIED SNOMED Code(s): 80450302 Plan: 1-Zosyn 3.375 g every 8 hours to continue 2-depending on her clinical course will determine her discharge antibiotics either oral or IV We will follow on clinical condition and cultures to further adjust medication if needed Thank you for this consultation we will follow the patient along with you Time with Patient: Greater than 30
[2020-04-12] MEDS: KETOROLAC 30 MG/ML 1 ML VIAL IVP SCH ×3 (05:58→18:02)
[2020-04-12 06:56] LABS: Basophils % (A) 0 %; Eosinophils # (A) 0.1 k/uL (0-0.7); Eosinophils % (A) 1 %; HCT 34.8 % (34.0-46.0); HGB 11.1 gm/dL (11.4-16.0); Lymphocytes # (A) 2.3 k/uL (1.0-4.8); Lymphocytes % (A) 30 %; MCH 29.8 pg (25.0-35.0); MCHC 31.9 g/dL (31.0-37.0); MCV 93.5 fL (80.0-100.0); Mean Platelet Volume 9.3; Monocytes # (A) 0.3 k/uL (0-1.0); Monocytes % (A) 3 %; Neutrophils % (A) 64 %; RBC 3.72 m/uL (3.80-5.40); RDW 12.6 % (11.5-15.5); WBC 7.8 k/uL (3.8-10.6)
[2020-04-12 08:02] LABS: Platelet Count 87 k/uL (150-450)
[2020-04-12] MEDS: PIPERACILLIN-TAZOBACTAM 3.375 GM in SODIUM CHLORIDE 0.9% 100 ML IVPB SCH ×2 (10:50→18:14)
[2020-04-12] MEDS: ENOXAPARIN 40 MG/0.4 ML SYRINGE SQ SCH (10:51)
[2020-04-12] MEDS: FAMOTIDINE 20 MG/2 ML VIAL IV SCH ×2 (10:51→20:21)
--- NOTE | 2020-04-12 13:48 | P.PN ---
Subjective This is a pleasant 44 years old female with past medical history of irritable bowel syndrome and depression. Admitted to surgical service for acute appendicitis, patient underwent Laparoscopic appendectomy and today is postoperative day #1. This morning patient was trying liquid diet, she has pain at surgical site and mid lower abdomen drain . No bowel movement or gas. 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 She has leukocytosis 29.3, 20.5 K, rest of CBC and BMP is unremarkable. Liver enzymes slightly elevated. She has CT of the abdomen and pelvis on admission showing appendicitis. Patient was started on Zosyn 04/12/2020 patient is status post laparoscopic appendectomy appendectomy and today's postop day 2, she still complaining of from pain at the surgical site, no nausea vomiting, she was able to eat elevated. She is passing no bowel movement. She is also complaining of from coughing which hurts her surgery site, Robitussin will be added, also add incentive spirometry Patient was then of from blurred vision for 2 years gradually worse however after the procedure it could more worse, on examination patient has no diplopia no significant blurriness however she will, or blurry went she started treatment, with counts check hemoglobin A1c. vitals his stable, WBC came back to normal at 7.8K, and patient continue on Zosyn Review of Systems CONSTITUTIONAL: No fever, no malaise, no fatigue. HEENT: No recent visual problems or hearing problems. Denied any sore throat. CARDIOVASCULAR: No orthopnea, PND, no palpitations, no syncope. PULMONARY: No shortness of breath, no cough, no hemoptysis. GASTROINTESTINAL: No diarrhea, no nausea, no vomiting, no abdominal pain. Normoactive bowel sounds. NEUROLOGICAL: No headaches, no weakness, no numbness. HEMATOLOGICAL: Denies any bleeding or petechiae. GENITOURINARY: Denies any burning micturition, frequency, or urgency. MUSCULOSKELETAL/RHEUMATOLOGICAL: Denies any joint pain, swelling, or any muscle pain. ENDOCRINE: Denies any polyuria or polydipsia. Active Medications Generic Name Dose Route Start Last Admin Trade Name Freq PRN Reason Stop Dose Admin Hydrocodone Bitart/Acetaminophen 2 each 04/10/20 19:26 [place] 5-325 PO Q6HR PRN Moderate to Severe Pain Enoxaparin Sodium 40 mg 04/11/20 09:00 04/12/20 10:51 Lovenox SQ 40 mg DAILY DRAKE Administration Famotidine 20 mg 04/11/20 09:00 04/12/20 10:51 Pepcid IV 20 mg Q12HR DRAKE Administration Guaifenesin/Dextromethorphan 10 ml 04/12/20 14:00 Robitussin Dm PO Q6H DRAKE Hydromorphone HCl 0.5 mg 04/10/20 19:26 04/11/20 23:49 Dilaudid IVP 0.5 mg Q3HR PRN Administration Moderate to Severe Pain Piperacillin Sod/Tazobactam 100 mls @ 25 mls/hr 04/11/20 00:00 04/12/20 10:50 Sod 3.375 gm/ Sodium Chloride IVPB 25 mls/hr Q8HR DRAKE Administration Ketorolac Tromethamine 30 mg 04/10/20 18:30 04/12/20 12:58 Toradol IVP 04/12/20 18:31 30 mg Q6HR DRAKE Administration Lidocaine HCl 0.1 ml 04/10/20 18:17 .Xylocaine 1% Inj (10mg/Ml) For Iv Start INTRADERMA PER PROTOCOL PRN IV Start Melatonin 3 mg 04/11/20 21:00 04/11/20 20:57 Melatonin PO 3 mg HS DRAKE Administration Morphine Sulfate 4 mg 04/10/20 17:32 Morphine Sulfate (Inj) IV Q4HR PRN Severe Pain Naloxone HCl 0.2 mg 04/10/20 19:26 Narcan IV Q2M PRN Opioid Reversal Ondansetron HCl 4 mg 04/10/20 19:26 04/12/20 10:57 Zofran IVP 4 mg Q8HR PRN Administration Nausea And Vomiting Objective - Vital Signs Vital signs: Vital Signs Temp 98.7 F 04/12/20 13:04 Pulse 68 04/12/20 13:04 Resp 16 04/12/20 13:04 BP 131/64 04/12/20 13:04 Pulse Ox 98 04/12/20 13:04 Intake & Output 04/11/20 04/12/20 04/12/20 18:59 06:59 18:59 Intake Total 300 700 240 Output Total 30 Balance 270 700 240 Intake: IV 200 0.9 200 Intake, IV Titration 100 Amount Piperacillin-Tazobactam 3 100 .375 gm In Sodium Chloride 0.9% 100 ml @ 25 mls/hr IVPB Q8HR [facility] Rx# :[id number] Oral 700 240 Output: Drainage 30 Anterior Abdomen 30 Other: # Voids 2 2 3 - Exam GENERAL: The patient is alert and oriented x3, not in any acute distress. Well developed, well nourished. HEENT: Pupils are round and equally reacting to light. EOMI. No scleral icterus. No conjunctival pallor. Normocephalic, atraumatic. No pharyngeal erythema. No thyromegaly. CARDIOVASCULAR: S1 and S2 present. No murmurs, rubs, or gallops. PULMONARY: Chest is clear to auscultation, no wheezing or crackles. -ABDOMEN: Soft, nontender, nondistended, normoactive bowel sounds. No palpable organomegaly. Right lower quadrant surgical wound with dressing MUSCULOSKELETAL: No joint swelling or deformity. EXTREMITIES: No cyanosis, clubbing, or pedal edema. NEUROLOGICAL: Gross neurological examination did not reveal any focal deficits. SKIN: No rashes. No petechiae - Labs CBC & Chem 7: 04/12/20 05:39 04/11/20 06:09 Labs: Abnormal Lab Results - Last 24 Hours (Table) 04/12/20 Range/Units 05:39 RBC 3.72 L (3.80-5.40) m/uL Hgb 11.1 L (11.4-16.0) gm/dL Plt Count 87 L (150-450) k/uL Microbiology - Last 24 Hours (Table) 04/10/20 16:27 Blood Culture - Preliminary Blood No Growth after 24 hours Assessment and Plan Assessment: acute appendicitis status post laparoscopic appendectomy Mildly elevated liver enzymes secondary to above blurred vision, chronic, mostly patient will need eyeglasses. Hemoglobin A1c CLL, stage 0 History of irritable bowel syndrome Plan: This is a pleasant 44 years old female who presents with acute appendicitis status post laparoscopic appendectomy by surgery cream. Pain management per surgical team. Continue with antibiotic. Follow-up liver enzymes.check hemoglobin A1c, add incentive spirometry and repetition Labs and medication were reviewed.. Continue same treatment. Continue with symptomatic treatment. Resume home medication. Monitor lytes and vitals. DVT and GI prophylaxis. Further recommendations of the clinical course of the patient DVT prophylaxis: Subcutaneous Lovenox GI Prophylaxis: Pepcid
--- NOTE | 2020-04-12 15:19 | PN ---
PROGRESS NOTE DATE OF SERVICE: 04/12/2020 REASON FOR FOLLOWUP: Acute perforated appendicitis. INTERVAL HISTORY: The patient is currently afebrile. Patient is breathing comfortably. She does have some pain especially with movement of her trunk, though no worsening and she has been taking less of her pain medication. No chest pain or shortness of breath or cough. She has been started on regular diet as of this morning. PHYSICAL EXAMINATION: Blood pressure 131/64 with a pulse of 68, temp 98.7. She is 98% on room air. General description is a middle-aged female up in the bed in no distress. Respiratory system: Unlabored breathing. Clear to auscultation anteriorly. Heart S1, S2. Regular rate and rhythm. ABDOMEN: Soft, no tenderness. JAXON drain with minimal secretions. LABS: Hemoglobin 11.1, white count 7.8, creatinine 0.78. Blood culture negative. DIAGNOSTIC IMPRESSION AND PLAN: Patient with acute perforated appendicitis status post laparoscopic appendectomy. White count has normalized. Keep the patient on IV Zosyn for another 24 hours. Hopefully to finish the oral antibiotic. Plan of care discussed with surgical team. Continue supportive care. MMODL / IJN: [id number] /
[2020-04-12] MEDS: guaiFENesin-DM 100-10MG/5ML 10 ML CUP PO SCH ×2 (15:24→20:36)
--- NOTE | 2020-04-12 15:44 | P.PN ---
Subjective Progress Note Date: 04/12/20 CHIEF COMPLAINT: Abdominal pain HISTORY OF PRESENT ILLNESS: Patient is status post laparoscopic appendectomy secondary to acute perforated appendicitis. Postoperative day #2. Patient examined at the bedside with Dr. Gibson. Patient states her pain is tolerable at this time, but does report some increased pain earlier today. Tolerating diet. Denies nausea or vomiting. WBC 7.8 PHYSICAL EXAM: VITAL SIGNS: Reviewed. GENERAL: Well-developed in no acute distress. HEENT: No sclera icterus. Extraocular movements grossly intact. Moist buccal mucosa. Head is atraumatic, normocephalic. ABDOMEN: Soft. Nondistended. Surgical sites clean dry and intact. JAXON drain with serosanguineous drainage. NEUROLOGIC: Alert and oriented. Cranial nerves II through XII grossly intact. ASSESSMENT: 1. Acute perforated appendicitis PLAN: -Continue regular diet -Continue IV antibiotics. Monitor WBC -Pain control -Monitor JAXON drain output -Activity as tolerated -Incentive spirometer -Anticipate discharge home tomorrow if patient remains stable Nurse practitioner note has been reviewed by physician. Signing provider agrees with the documented findings, assessment, and plan of care. Objective - Vital Signs Vital signs: Vital Signs Temp 98.7 F 04/12/20 13:04 Pulse 68 04/12/20 13:04 Resp 16 04/12/20 13:04 BP 131/64 04/12/20 13:04 Pulse Ox 98 04/12/20 13:04 Intake & Output 04/11/20 04/12/20 04/12/20 18:59 06:59 18:59 Intake Total 300 700 240 Output Total 30 10 Balance 270 700 230 Intake: IV 200 0.9 200 Intake, IV Titration 100 Amount Piperacillin-Tazobactam 3 100 .375 gm In Sodium Chloride 0.9% 100 ml @ 25 mls/hr IVPB Q8HR [facility] Rx# :[id number] Oral 700 240 Output: Drainage 30 10 Anterior Abdomen 30 10 Other: # Voids 2 2 3 - Labs CBC & Chem 7: 04/12/20 05:39 04/11/20 06:09 Labs: Abnormal Lab Results - Last 24 Hours (Table) 04/12/20 Range/Units 05:39 RBC 3.72 L (3.80-5.40) m/uL Hgb 11.1 L (11.4-16.0) gm/dL Plt Count 87 L (150-450) k/uL Microbiology - Last 24 Hours (Table) 04/10/20 16:27 Blood Culture - Preliminary Blood No Growth after 24 hours
[2020-04-12] MEDS: MELATONIN 3 MG TABLET PO SCH (21:01)
[2020-04-12] MEDS: HYDROmorphone 0.5 MG/0.5 ML SYRINGE IVP PRN (21:02)
[2020-04-13] MEDS: guaiFENesin-DM 100-10MG/5ML 10 ML CUP PO SCH ×2 (01:06→08:26)
[2020-04-13] MEDS: PIPERACILLIN-TAZOBACTAM 3.375 GM in SODIUM CHLORIDE 0.9% 100 ML IVPB SCH ×2 (01:06→08:25)
[2020-04-13] MEDS: HYDROmorphone 0.5 MG/0.5 ML SYRINGE IVP PRN (01:10)
[2020-04-13 06:43] LABS: Basophils % (A) 0 %; Eosinophils # (A) 0.1 k/uL (0-0.7); Eosinophils % (A) 2 %; HCT 31.9 % (34.0-46.0); HGB 10.3 gm/dL (11.4-16.0); Lymphocytes # (A) 2.1 k/uL (1.0-4.8); Lymphocytes % (A) 36 %; MCH 29.7 pg (25.0-35.0); MCHC 32.1 g/dL (31.0-37.0); MCV 92.6 fL (80.0-100.0); Mean Platelet Volume 9.9; Monocytes # (A) 0.2 k/uL (0-1.0); Monocytes % (A) 4 %; Neutrophils # (A) 3.2 k/uL (1.3-7.7); Neutrophils % (A) 56 %; RBC 3.45 m/uL (3.80-5.40); RDW 12.5 % (11.5-15.5); WBC 5.7 k/uL (3.8-10.6)
[2020-04-13 06:50] LABS: Platelet Count 85 k/uL (150-450)
[2020-04-13] MEDS: FAMOTIDINE 20 MG/2 ML VIAL IV SCH (08:26)
[2020-04-13] MEDS: ENOXAPARIN 40 MG/0.4 ML SYRINGE SQ SCH (08:26)
[2020-04-13 08:43] VITALS: BP 95/61; PULSE 69; RESP 20
[2020-04-13] MEDS ORDERED: IBUPROFEN 600 MG TAB PO SCH (10:30)
[2020-04-13 10:33] VITALS: TEMP 99.2
[2020-04-13] MEDS ORDERED: guaiFENesin-DM 100-10MG/5ML 10 ML CUP PO PRN (10:44)
--- NOTE | 2020-04-13 10:44 | P.PN ---
Subjective This is a pleasant 44 years old female with past medical history of irritable bowel syndrome and depression. Admitted to surgical service for acute appendicitis, patient underwent Laparoscopic appendectomy and today is postoperative day #1. This morning patient was trying liquid diet, she has pain at surgical site and mid lower abdomen drain . No bowel movement or gas. 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 She has leukocytosis 29.3, 20.5 K, rest of CBC and BMP is unremarkable. Liver enzymes slightly elevated. She has CT of the abdomen and pelvis on admission showing appendicitis. Patient was started on Zosyn 04/12/2020 patient is status post laparoscopic appendectomy appendectomy and today's postop day 2, she still complaining of from pain at the surgical site, no nausea vomiting, she was able to eat elevated. She is passing no bowel movement. She is also complaining of from coughing which hurts her surgery site, Robitussin will be added, also add incentive spirometry Patient was then of from blurred vision for 2 years gradually worse however after the procedure it could more worse, on examination patient has no diplopia no significant blurriness however she will, or blurry went she started treatment, with counts check hemoglobin A1c. vitals his stable, WBC came back to normal at 7.8K, and patient continue on Zosyn 04/13/2020 Patient was sitting on the side of face, no dizziness, no coughing, no chest pain or dyspnea. Her abdominal pain at the surgical site looks better as per patient. She had low-grade temperature of 99.7 and early this morning, systolic blood pressure running in the 90s however patient is asymptomatic patient currently has normal saline running at 50 mL per hour at bedside, increased to 75 mm per hour. She is encouraged to use incentive spirometry. She does not have bowel movement only gas She remains on Zosyn Objective - Vital Signs Vital signs: Vital Signs Temp 99.2 F 04/13/20 10:32 Pulse 69 04/13/20 08:41 Resp 20 04/13/20 08:41 BP 95/61 04/13/20 08:41 Pulse Ox 96 04/13/20 08:41 Intake & Output 04/12/20 04/13/20 04/13/20 18:59 06:59 18:59 Intake Total 240 Output Total 10 20 Balance 230 -20 Intake: Oral 240 Output: Drainage 10 20 Anterior Abdomen 10 20 Other: # Voids 3 1 - Exam GENERAL: The patient is alert and oriented x3, not in any acute distress. Well developed, well nourished. HEENT: Pupils are round and equally reacting to light. EOMI. No scleral icterus. No conjunctival pallor. Normocephalic, atraumatic. No pharyngeal erythema. No thyromegaly. CARDIOVASCULAR: S1 and S2 present. No murmurs, rubs, or gallops. PULMONARY: Chest is clear to auscultation, no wheezing or crackles. -ABDOMEN: Soft, nontender, nondistended, normoactive bowel sounds. No palpable organomegaly. Right lower quadrant surgical wound with dressing MUSCULOSKELETAL: No joint swelling or deformity. EXTREMITIES: No cyanosis, clubbing, or pedal edema. NEUROLOGICAL: Gross neurological examination did not reveal any focal deficits. SKIN: No rashes. No petechiae - Labs CBC & Chem 7: 04/13/20 06:13 04/11/20 06:09 Labs: Abnormal Lab Results - Last 24 Hours (Table) 04/13/20 Range/Units 06:13 RBC 3.45 L (3.80-5.40) m/uL Hgb 10.3 L (11.4-16.0) gm/dL Hct 31.9 L (34.0-46.0) % Plt Count 85 L (150-450) k/uL Microbiology - Last 24 Hours (Table) 04/10/20 16:27 Blood Culture - Preliminary Blood No Growth after 48 hours Assessment and Plan Assessment: acute appendicitis status post laparoscopic appendectomy Mildly elevated liver enzymes secondary to above blurred vision, chronic, mostly patient will need eyeglasses. Hemoglobin A1c CLL, stage 0 History of irritable bowel syndrome Plan: This is a pleasant 44 years old female who presents with acute appendicitis status post laparoscopic appendectomy by surgery cream. Pain management per surgical team. Continue with antibiotic. Follow-up liver enzymes.check hemoglobin A1c, add incentive spirometry and repetition Labs and medication were reviewed.. Continue same treatment. Continue with symptomatic treatment. Resume home medication. Monitor lytes and vitals. DVT and GI prophylaxis. Further recommendations of the clinical course of the patient DVT prophylaxis: Subcutaneous Lovenox GI Prophylaxis: Pepcid
--- NOTE | 2020-04-13 13:56 | PN ---
PROGRESS NOTE DATE OF SERVICE: 04/13/2020 REASON FOR FOLLOWUP: Acute perforated appendicitis. INTERVAL HISTORY: The patient is currently afebrile. Patient is breathing comfortably. The patient denies having any chest pain or shortness of breath or cough. Abdominal pain has improved. No nausea, vomiting. Has been tolerating her diet. PHYSICAL EXAMINATION: Blood pressure 95/61, pulse is 97.5. She is 96% on room air. General description: The patient is a middle-aged female up in the bed in no distress. Respiratory system: Unlabored breathing. Clear to auscultation anteriorly. Heart S1, S2. Regular rate and rhythm. ABDOMEN: Soft, no tenderness. LABS: White count 5.7. Blood culture negative. DIAGNOSTIC IMPRESSION AND PLAN: Patient with acute perforated appendicitis status post appendectomy. Overall clinically on Zosyn. Finish therapy with Levaquin and Flagyl for about a week. Discussed with the surgical team. Continue supportive care. MMODL / IJN: [id number] /
--- NOTE | 2020-04-13 14:18 | P.DS ---
Providers Date of admission: 04/10/20 17:09 Expected date of discharge: 04/13/20 Attending physician: Chris Gibson Consults: 04/10/20 19:26 Consult Physician Routine Consulting Provider: Arturo Jade Consult Reason/Comments: Medical management Do you want consulting provider notified?: Yes Consult Physician Routine Consulting Provider: Jesusita Daily Consult Reason/Comments: Perforated appendicitis Do you want consulting provider notified?: Yes Primary care physician: Physician Nonstaff Hospital Course: 44-year-old female presented to the emergency room with chief complaint abdominal pain. Patient was found to have appendicitis. She underwent laparoscopic appendectomy. Patient is doing well postoperatively without any immediate complications. Vital signs are stable. Tolerating diet without nausea or vomiting. She is stable for discharge home today. Please see EMR for further hospital course details. Discharge Diagnosis: 1. Acute perforated appendicitis Nurse practitioner note has been reviewed by physician. Signing provider agrees with the documented findings, assessment, and plan of care. Patient Condition at Discharge: Stable Plan - Discharge Summary Discharge Rx Participant: Yes New Discharge Prescriptions: New Hydrocodone/Acetaminophen [Ronks 5-325] 1 tab PO Q6HR PRN #10 tab PRN Reason: Pain Levofloxacin [Levaquin] 500 mg PO DAILY 7 Days #7 tab No Action diphenhydrAMINE HCL [Benadryl] 25 - 50 mg PO HS PRN PRN Reason: Insomnia Melatonin 2.5 mg PO HS PRN PRN Reason: Insomnia Discharge Medication List Melatonin 2.5 mg PO HS PRN 04/10/20 [History] diphenhydrAMINE HCL [Benadryl] 25 - 50 mg PO HS PRN 04/10/20 [History] Hydrocodone/Acetaminophen [Ronks 5-325] 1 tab PO Q6HR PRN #10 tab 04/12/20 [Rx] Levofloxacin [Levaquin] 500 mg PO DAILY 7 Days #7 tab 04/12/20 [Rx] Follow up Appointment(s)/Referral(s): Nonstaff,Physician [Primary Care Provider] - 1-2 days Chris Gibson MD [STAFF PHYSICIAN] - 1 Week Activity/Diet/Wound Care/Special Instructions: Patient will need Indigent form sent to [facility] pharmacy. Placed form in chart. No driving while taking Ronks No lifting over 10 pounds You may shower. No soaking or tub baths Very light activity until you are reevaluated at your follow up appointment with your surgeon
[2020-04-13 14:25] LABS: Hemoglobin A1C 5.4 % (4.0-6.0)
== END 2020-04-13 14:52 | disposition home or self-care (01) | DRG 339 ==
LOC: EC 12:49 → 5NMEDONC 17:09 → 6PED 04-12 15:47
PROVIDERS: ADMIT Surgery; ATTEND Surgery
PROC: 0DTJ4ZZ Resection of Appendix, Percutaneous Endoscopic Approach (ICD-10-PCS; principal; 2020-04-10 17:43)
DX: K35.32 Acute appendicitis with perforation, localized peritonitis, and gangrene, without abscess (principal); C91.10 Chronic lymphocytic leukemia of B-cell type not having achieved remission; K38.1 Appendicular concretions; K58.9 Irritable bowel syndrome, unspecified; Z11.59 Encounter for screening for other viral diseases; Z79.899 Other long term (current) drug therapy; Z90.49 Acquired absence of other specified parts of digestive tract; Z86.59 Personal history of other mental and behavioral disorders; Z80.0 Family history of malignant neoplasm of digestive organs; Z83.49 Family history of other endocrine, nutritional and metabolic diseases
CPT/HCPCS: 36415; 74177; 80053; 81001; 81025; 83036; 83605; 83690; 85025; 87040; 87635; 88304; 96361; 96365; 96375; 99285